=== PATIENT | male | born 1970 | race Caucasian/White ===

== ENCOUNTER → 2023-08-21 12:58 | Outpatient (CLI) | payer BC, SELFPAY ==
--- NOTE | 2023-08-21 | DI.CT.S_ITS ---
PROCEDURE: CT CHEST ABD PEL W CON INDICATIONS: Abnormal weight loss TECHNIQUE: After the administration of oral and intravenous contrast, axial sections acquired from the supraclavicular neck to the pubic symphysis. Coronal and sagittal reformats were performed. For radiation dose reduction, the following was used: automated exposure control, adjustment of mA and/or kV according to patient size. COMPARISON: None. FINDINGS: Image quality: Excellent. CHEST: Lower Neck: No enlarged lymph nodes. Thyroid: Within normal limits. Axillae: No enlarged lymph nodes. Chest Wall: Unremarkable. Lungs and Airways: Multiple tiny pulmonary nodules are present. It Application Development Manager nodules are as follows: 1. 2 mm pulmonary nodule, posterior left upper lobe, image 116/5. 2. 2 mm subpleural pulmonary nodule, image 139/5, left upper lobe. 3. 3 x 5 mm fissural nodule, right lung, image 169/5. Pleura: No pneumothorax or pleural effusions. Heart: Heart size is normal. No pericardial effusion. Thoracic Vessels: The aorta and pulmonary arteries demonstrate normal size. Mediastinum and Nelda: No enlarged lymph nodes. Esophagus: No wall thickening. No hiatal hernia. ABDOMEN: Liver: Cirrhosis. Extensive surface nodularity with a prominent left lobe. No suspicious liver mass identified. Gallbladder: Very mild wall thickening, nonspecific in the setting of hepatic dysfunction. Biliary ducts: Unremarkable. Pancreas: Unremarkable. Spleen: Unremarkable. Adrenal Glands: Unremarkable. Kidneys and Ureters: Unremarkable. Stomach and Bowel: Extensive sigmoid diverticulosis without evidence of diverticulitis. There is right colonic wall thickening, which is nonspecific in the setting of hepatic dysfunction and ascites. Peritoneum: [id number] ascites. No free air. Ventral Wall: No hernia. Abdominal Nodes: No retroperitoneal or mesenteric adenopathy by size criteria. Vessels: Aorta and inferior vena cava are normal in size. PELVIS: Pelvic Organs: Unremarkable. Bladder: Mild diffuse bladder wall thickening allowing for the degree of decompression present.. Pelvic Nodes: No enlarged lymph nodes. Miscellaneous: No inguinal hernias are seen. Bones: Degenerative change. No compression fractures. No lytic or blastic bony lesions. IMPRESSION: 1. Multiple tiny pulmonary nodules. Please see chart below for follow-up recommendations. 2. No acute pulmonary process noted. 3. Cirrhosis. 4. [id number]-[id number] ascites. 5. Extensive sigmoid diverticulosis without evidence of diverticulitis. 6. Bladder wall thickening. Dictated by: Fernando Naqvi M.D. on 08/21/2023 at 17:31 Approved by: Fernando Naqvi M.D. on 08/21/2023 at 17:40
== END ==
PROVIDERS: PCP Physician Assistant Medical; Referring Provider Physician Assistant Medical; Visit Provider Physician Assistant Medical
DX: K74.60 Unspecified cirrhosis of liver (principal); R18.8 Other ascites; K57.30 Diverticulosis of large intestine without perforation or abscess without bleeding; R63.4 Abnormal weight loss
CPT/HCPCS: 71260; 74177; Q9967